=== PATIENT | female | born 2000 | race African-American/Black ===

== ENCOUNTER 2021-11-02 11:08 | Day surgery (SDC) | payer OTHER, BC ==
[2021-11-02 11:04] VITALS: BMI 39.7
[2021-11-02] MEDS ORDERED: hydrALAZINE 20 MG/ML VIAL SLOW IVP PRN (11:32)
[2021-11-02] MEDS ORDERED: Lactated Ringer's 1,000 ML IV SCH (12:00)
[2021-11-02 13:55] LABS: Hemoglobin 10.7 g/dL (12.0-15.5); Platelet Count 184 10x3/uL (150-450)
== END 2021-11-02 14:45 | disposition home or self-care (01) ==
LOC: CSHLD/OP 11:08
PROVIDERS: ATTEND Family Medicine
DX: O99.413 Diseases of the circulatory system complicating pregnancy, third trimester (principal); I47.9 Paroxysmal tachycardia, unspecified; O99.343 Other mental disorders complicating pregnancy, third trimester; F31.9 Bipolar disorder, unspecified; O36.5930 Maternal care for other known or suspected poor fetal growth, third trimester, not applicable or unspecified; O99.213 Obesity complicating pregnancy, third trimester; O99.013 Anemia complicating pregnancy, third trimester; D50.9 Iron deficiency anemia, unspecified; O99.283 Endocrine, nutritional and metabolic diseases complicating pregnancy, third trimester; E86.0 Dehydration; O34.211 Maternal care for low transverse scar from previous cesarean delivery; Z3A.36 36 weeks gestation of pregnancy; Z79.82 Long term (current) use of aspirin; Z88.0 Allergy status to penicillin
CPT/HCPCS: 76815; 76819; 85014; 85018; 85049; 93005; 93010; 96360; 99282

== ENCOUNTER 2021-11-04 21:28 | Day surgery (SDC) | payer BC, OTHER | END 2021-11-04 23:36 | disposition home or self-care (01) | LOC: CSHLD/OP 21:28 | PROVIDERS: ATTEND Family Medicine | DX: O36.8130 Decreased fetal movements, third trimester, not applicable or unspecified (principal); O34.211 Maternal care for low transverse scar from previous cesarean delivery; Z3A.37 37 weeks gestation of pregnancy; Z79.82 Long term (current) use of aspirin; Z79.899 Other long term (current) drug therapy; Z88.0 Allergy status to penicillin | CPT/HCPCS: 99282 ==

== ENCOUNTER 2021-11-20 05:15 | Inpatient (IN) | payer BC, OTHER ==
[2021-11-19 13:24] LABS: Mean Corpuscular HGB CONC 33.2 g/dL (32.0-36.0); Mean Corpuscular Hemoglobin 28.4 pg (27.0-33.0); Mean Corpuscular Volume 85.5 fl (81.6-98.3); Mean Platelet Volume 13.5 fl (7.4-10.4); Platelet Count 174 10x3/uL (150-450); RBC Distribution Width 15.1 % (11.5-14.5); Red Blood Cell (RBC) Count 3.87 10x6/uL (3.90-5.03); White Blood Cell (WBC) Count 8.3 10x3/uL (3.5-10.5)
[2021-11-19 13:50] LABS: Hep B Surf Ag Non-Reactive S/CO (NonReactive)
[2021-11-19 13:53] LABS: Syphilis Antibody Nonreactive (Nonreactive); Syphilis Antibody Index 0.06 S/CO (<1.00 Non-Reactive)
[2021-11-19 13:57] LABS: HBSAg Index 0.17 S/CO (0-0.99)
[2021-11-20] MEDS ORDERED: Famotidine/PF 20 mg/2ml Vial SLOW IVP PRN (05:26)
[2021-11-20] MEDS ORDERED: Bicitra 30 ML UDCUP PO PRN (05:26)
[2021-11-20] MEDS ORDERED: hydrALAZINE 20 MG/ML VIAL SLOW IVP PRN ×2 (05:37→11:34)
[2021-11-20] MEDS ORDERED: Acetaminophen 500 MG TAB PO PRN (05:37)
[2021-11-20] MEDS ORDERED: Ondansetron PF 4 MG/2 ML Vial IVP PRN ×2 (05:37→09:32)
[2021-11-20] MEDS ORDERED: Promethazine HCl 25 MG/ML VIAL IM PRN ×3 (05:37→11:34)
[2021-11-20] MEDS ORDERED: Docusate 100 MG CAP PO PRN (05:37)
[2021-11-20] MEDS ORDERED: ceFAZolin 2 GM/Dextrose 50 ML 2 GM in Premix Bag 1 BAG IVPB SCH (06:00)
[2021-11-20] MEDS: Lactated Ringer's 1,000 ML IV SCH ×2 (06:00→07:24)
[2021-11-20 06:01] VITALS: BMI 40.3
[2021-11-20] MEDS ORDERED: Famotidine/PF 20 mg/2ml Vial ONE (07:24)
[2021-11-20] MEDS ORDERED: Morphine PF 10 MG/10 ML VIAL ONE (07:42)
[2021-11-20] MEDS ORDERED: ePHEDrine Sulfate 50 MG/10 ML VIAL ONE (07:43)
[2021-11-20] MEDS ORDERED: Oxytocin 10 UNITS/ML VIAL ONE (07:44)
[2021-11-20] MEDS ORDERED: Ondansetron PF 4 MG/2 ML Vial ONE (07:45)
[2021-11-20] MEDS ORDERED: PHENYLEPHRINE-NS 100 MCG/ML 10 ML SYRINGE ONE (09:15)
[2021-11-20] MEDS ORDERED: Meperidine HCl/PF 25 MG/ML VIAL SLOW IVP PRN (09:32)
[2021-11-20] MEDS ORDERED: Promethazine HCl 25 MG SUPP PR PRN (09:32)
[2021-11-20] MEDS ORDERED: Fentanyl 100 MCG/2 ML VIAL SLOW IVP PRN (09:32)
[2021-11-20] MEDS ORDERED: Naloxone HCl 0.4 mg/ml Vial IVP PRN ×2 (09:32)
[2021-11-20] MEDS ORDERED: Ondansetron HCl/PF 4 MG/2 ML Vial IVP PRN (09:32)
[2021-11-20] MEDS ORDERED: diphenhydrAMINE 50 MG/ML VIAL IVP PRN (09:32)
[2021-11-20] MEDS ORDERED: Moisturizing Cream (Eucerin) 113 GM JAR TOP PRN (09:32)
[2021-11-20] MEDS ORDERED: Naloxone HCl 0.4 mg/ml Vial IV PRN (09:32)
[2021-11-20] MEDS ORDERED: Ketorolac Tromethamine 30 MG/ML VIAL IVP SCH (09:45)
[2021-11-20] MEDS ORDERED: Communication Order-Pharmacy FS SCH (09:45)
[2021-11-20] MEDS ORDERED: Bisacodyl 10 MG SUPP PR PRN (11:34)
[2021-11-20] MEDS ORDERED: Acetaminophen 325 MG TAB PO PRN (11:34)
[2021-11-20] MEDS ORDERED: Simethicone Chewable 80 MG TAB PO PRN (11:34)
[2021-11-20] MEDS ORDERED: Lanolin Ointment 7 GM TUBE TOP PRN (11:34)
[2021-11-20] MEDS ORDERED: Methylergonovine 0.2 MG/ML VIAL IM PRN (11:34)
[2021-11-20] MEDS ORDERED: Boostrix 0.5 ML (Tdap) VIAL IM ONE (11:34)
[2021-11-20] MEDS ORDERED: diphenhydrAMINE 25 MG CAP PO PRN (11:34)
[2021-11-20] MEDS: Ketorolac Tromethamine 30 MG/ML VIAL IVP PRN ×2 (13:48→21:32)
[2021-11-20] MEDS: Ondansetron PF 4 MG/2 ML Vial IVP PRN ×2 (15:28→21:32)
[2021-11-20] MEDS: Docusate 100 MG CAP PO SCH (21:33)
[2021-11-20] MEDS: Ferrous Sulfate 325 MG TAB PO SCH (21:34)
[2021-11-20] MEDS ORDERED: HYDROcodone/Acetaminophen 5/325 mg Tablet PO PRN (21:45)
[2021-11-21] MEDS: Ketorolac Tromethamine 30 MG/ML VIAL IVP PRN (04:16)
[2021-11-21] MEDS: Ferrous Sulfate 325 MG TAB PO SCH ×2 (11:41→21:49)
[2021-11-21] MEDS: Prenatal Vitamin 1 TAB PO SCH (11:41)
[2021-11-21] MEDS: Docusate 100 MG CAP PO SCH ×2 (11:41→21:52)
[2021-11-21] MEDS: HYDROcodone/Acetaminophen 5/325 mg Tablet PO PRN ×2 (11:45→21:53)
[2021-11-21] MEDS: Ibuprofen 800 MG TAB PO SCH ×2 (14:41→21:52)
[2021-11-22] MEDS: Ibuprofen 800 MG TAB PO SCH (05:43)
[2021-11-22 07:41] VITALS: BP 115/55; TEMP 97.8
[2021-11-22] MEDS: Docusate 100 MG CAP PO SCH (09:20)
[2021-11-22] MEDS: Prenatal Vitamin 1 TAB PO SCH (09:20)
[2021-11-22] MEDS: Ferrous Sulfate 325 MG TAB PO SCH (09:20)
== END 2021-11-22 12:40 | disposition home or self-care (01) | DRG 788 ==
LOC: CSHLD 05:15 → CSHPP 11:15
PROVIDERS: ADMIT Family Medicine; ATTEND Family Medicine
PROC: 10D00Z1 Extraction of Products of Conception, Low, Open Approach (ICD-10-PCS; principal; 2021-11-20)
DX: O34.211 Maternal care for low transverse scar from previous cesarean delivery (principal); Z20.822 Contact with and (suspected) exposure to COVID-19; Z37.0 Single live birth; Z3A.39 39 weeks gestation of pregnancy; E66.9 Obesity, unspecified; O99.214 Obesity complicating childbirth; D50.9 Iron deficiency anemia, unspecified; O99.02 Anemia complicating childbirth; Z79.82 Long term (current) use of aspirin; Z79.899 Other long term (current) drug therapy; O99.824 Streptococcus B carrier state complicating childbirth; F31.9 Bipolar disorder, unspecified; O99.344 Other mental disorders complicating childbirth; Z88.0 Allergy status to penicillin; F41.9 Anxiety disorder, unspecified; O32.8XX0 Maternal care for other malpresentation of fetus, not applicable or unspecified
CPT/HCPCS: 51702; 85027; 86780; 86850; 86900; 86901; 87340; J0690; J1885; J2274; J2405; J2590; J7120; S0028; U0003; U0005

== ENCOUNTER 2022-10-06 15:59 | Emergency (ER) | payer BC, OTHER ==
[2022-10-06] MEDS ORDERED: Acetaminophen 500 MG TAB ONE (17:49)
[2022-10-06] MEDS ORDERED: Lidocaine 1% (PF) 30 ML VIAL ONE (17:50)
== END 2022-10-06 18:21 | disposition home or self-care (01) ==
LOC: CSHERS 15:59
DX: S93.115A Dislocation of interphalangeal joint of left lesser toe(s), initial encounter (principal); W18.49XA Other slipping, tripping and stumbling without falling, initial encounter
CPT/HCPCS: 64450; J2001